=== PATIENT | male | born 1950 | race Hispanic/Latino ===

== ENCOUNTER 2022-02-23 15:31 | Emergency (ER) | payer OTHER, MEDICARE ==
[~2022-02-23] VITALS: Ht 172.7 cm; Wt 95.3 kg
[2022-02-23 15:49] VITALS: BP 193/96
[2022-02-23] MEDS ORDERED: LIDOCAINE HCL MPF 1% 5ML VIAL ONE (15:54)
[2022-02-23] MEDS ORDERED: TETANUS/DIPHTHERIA TOXOID [ADULT] 0.5 ML VIAL IM ONE (16:00)
[2022-02-23] MEDS ORDERED: CEPHALEXIN 500 MG CAPSULE PO ONE (16:00)
[2022-02-23] MEDS ORDERED: CEPH500B PO (16:35)
== END 2022-02-23 17:03 | disposition home or self-care (01) ==
LOC: EDH 15:31
DX: S61.412A Laceration without foreign body of left hand, initial encounter (principal); E78.00 Pure hypercholesterolemia, unspecified; I10 Essential (primary) hypertension; Z90.49 Acquired absence of other specified parts of digestive tract; X58.XXXA Exposure to other specified factors, initial encounter; Y93.89 Activity, other specified; Y92.89 Other specified places as the place of occurrence of the external cause; Y99.8 Other external cause status
CPT/HCPCS: 12002; 73130; 90471; 90714; 99283; J3490

== ENCOUNTER 2022-07-19 18:29 | Emergency (ER) | payer OTHER, MEDICARE ==
[~2022-07-19] VITALS: Ht 172.7 cm; Wt 108.9 kg
[~2022-07-19 18:29] MED LIST: CEPH500B PO
[2022-07-19 19:45] LABS: BASOPHILS % (AUTO) 0.8 % (0.0-5.0); EOSINOPHILS % (AUTO) 8.6 % (0.0-8.0); HEMATOCRIT 42.2 % (42-54); LYMPHOCYTES % (AUTO) 29.5 % (21.0-51.0); MEAN CORPUSCULAR HEMOGLOBIN 31.5 pg (27.0-33.0); MEAN CORPUSCULAR HGB CONC 34.6 g/dL (32.0-36.0); MEAN CORPUSCULAR VOLUME 90.9 fL (79-99); MONOCYTES % (AUTO) 11.8 % (3.0-13.0); NEUTROPHILS % (AUTO) 49.1 % (40.0-77.0); PLATELET COUNT (AUTO) 197 K/uL (130-400); RED BLOOD CELL COUNT(AUTO) 4.64 MIL/uL (4.50-6.20); RED CELL DISTRIBUTION WIDTH 14.1 % (11.0-15.5)
[2022-07-19 19:56] LABS: CREATININE 1.3 mg/dL (0.5-1.5); POTASSIUM 3.6 mmol/L (3.5-5.1)
[2022-07-19 20:03] LABS: ALBUMIN 3.5 g/dL (3.5-5.0); TOTAL PROTEIN, SERUM 7.8 g/dL (6.0-8.3)
[2022-07-19 23:43] VITALS: BP 123/79
== END 2022-07-19 23:44 | disposition home or self-care (01) ==
LOC: EDH 18:29
DX: G45.9 Transient cerebral ischemic attack, unspecified (principal); F41.9 Anxiety disorder, unspecified; E78.00 Pure hypercholesterolemia, unspecified; I10 Essential (primary) hypertension; I48.91 Unspecified atrial fibrillation; Z90.49 Acquired absence of other specified parts of digestive tract
CPT/HCPCS: 36415; 70450; 71045; 80053; 84484; 85025; 93005